=== PATIENT | male | born 1955 | race Two or more races ===

== ENCOUNTER 2025-05-05 07:05 | Outpatient (CLI) | payer OTHER | END 2025-05-05 07:09 | disposition home or self-care (01) | LOC: TOM 07:05 | PROVIDERS: ATTEND Internal Medicine Gastroenterology | DX: K56.609 Unspecified intestinal obstruction, unspecified as to partial versus complete obstruction (principal); Z86.0101 Personal history of adenomatous and serrated colon polyps ==